=== PATIENT | male | born 1965 | race Caucasian/White ===

== ENCOUNTER 2016-05-21 02:04 | Emergency (ER) | payer MEDICARE ==
[2016-05-21] MEDS ORDERED: ZANT150T2 PO (02:16)
[2016-05-21] MEDS ORDERED: GABA300C5 PO (02:16)
[2016-05-21] MEDS ORDERED: CLON0.5T PO (02:16)
[2016-05-21] MEDS ORDERED: BUPR150CR PO (02:16)
[2016-05-21] MEDS ORDERED: AMLO5TAB2 PO (02:16)
[2016-05-21] MEDS ORDERED: ALBUAER3 INH (02:16)
[2016-05-21] MEDS ORDERED: BACL10TA PO (02:16)
[2016-05-21 03:15] LABS: BLOOD, URINE NEG (NEG); GLUCOSE,URINE NEG (NEG); KETONE, URINE NEG (NEG); NITRITE,URINE NEG (NEG); SQUAMOUS EPITHELIAL CELL URINE <1 /hpf (0-5); URINE COLOR LIGHT-YELLOW (YELLW/STRAW)
[2016-05-21 03:17] LABS: COMMENT (UR) CULT NOT INDICATED; CULTURE IF INDICATED CULT NOT INDICATED
[2016-05-21 03:18] LABS: AUTOMATED NEUTROPHIL # 5.6 TH/MM3 (1.8-7.7); BASOPHIL % 0.5 % (0.0-2.0); EOSINOPHIL # 0.1 TH/MM3 (0-0.4); EOSINOPHIL % 0.8 % (0.0-4.0); HEMATOCRIT 45.7 % (39.0-51.0); HEMO FLAGS DIFF FINAL; LYMPH % 12.9 % (9.0-44.0); LYMPHOCYTE # 0.9 TH/MM3 (1.0-4.8); MEAN CELL VOLUME 87.2 FL (80.0-100.0); MEAN CORPUSCULAR HEMOGLOBIN 30.2 PG (27.0-34.0); MEAN CORPUSCULAR HGB CONC 34.7 % (32.0-36.0); MONO % 7.2 % (0.0-8.0); NEUT % 78.6 % (16.0-70.0); PLATELET COUNT 188 TH/MM3 (150-450); RED BLOOD COUNT 5.24 MIL/MM3 (4.50-5.90); RED CELL DISTRIBUTION WIDTH 12.5 % (11.6-17.2); WHITE BLOOD COUNT 7.1 TH/MM3 (4.0-11.0)
[2016-05-21 03:22] LABS: AMPHETAMINE, URINE NEG (NEG); BARBITURATES, URINE NEG (NEG); COCAINE, URINE NEG (NEG)
[2016-05-21 03:25] VITALS: RESP 16
--- NOTE | 2016-05-21 03:26 | RADRPT ---
EXAM DATE/TIME: 05/21/2016 03:12 [facility] COMPARISON: No previous studies available for comparison. INDICATIONS : Cough. Weakness. MEDICAL HISTORY : None. SURGICAL HISTORY : None. ENCOUNTER: Initial ACUITY: 1 day PAIN SCORE: 5/10 LOCATION: Bilateral chest FINDINGS: A single portable frontal view of the chest shows a vague parenchymal density within the left lung ba se. Remaining lungs are clear. No effusions. Heart normal size. Bony structures are normal. CONCLUSION: Left lower lobe infiltrate. Fazal Flores Jr., MD on May 21, 2016 at 3:24 Board Certified Radiologist. This report was verified electronically.
--- NOTE | 2016-05-21 03:27 | RADRPT ---
EXAM DATE/TIME: 05/21/2016 02:57 [facility] COMPARISON: No previous studies available for comparison. INDICATIONS : Altered mental status; possible overdose. RADIATION DOSE: 56.35 CTDIvol (mGy) MEDICAL HISTORY : Hypertension. Cerebrovascular disease. SURGICAL HISTORY : None. ENCOUNTER: Initial ACUITY: 1 day PAIN SCALE: 0/10 LOCATION: cranial TECHNIQUE: Multiple contiguous axial images were obtained of the head. Using automated exposure control and adj ustment of the mA and/or kV according to patient size, radiation dose was kept as low as reasonably a chievable to obtain optimal diagnostic quality images. FINDINGS: CEREBRUM: The ventricles are normal for age. No evidence of midline shift, mass lesion, hemorrhage or acute in farction. No extra-axial fluid collections are seen. POSTERIOR FOSSA: The cerebellum and brainstem are intact. The 4th ventricle is midline. The cerebellopontine angle i s unremarkable. EXTRACRANIAL: The visualized portion of the orbits is intact. SKULL: Prior occipital craniectomy. No evidence of skull fracture. CONCLUSION: No acute disease. Fazal Flores Jr., MD on May 21, 2016 at 3:24 Board Certified Radiologist. This report was verified electronically.
[2016-05-21 03:29] LABS: APTT (PATIENT) 24.9 SEC (24.3-30.1); PROTHROMBIN TIME - PATIENT 11.5 SEC (9.8-11.6)
--- NOTE | 2016-05-21 03:41 | PD ---
HPI Chief Complaint: Medical Clearance Time Seen by Provider: 02:47 Travel History International Travel<30 days: No Contact w/Intl Traveler<30days: No Traveled to known affect area: No History of Present Illness HPI The patient is 51 year old male who presents to the [facility] emergency department with a history of earlier in the evening at his fdc developing a burning sensation in his eyes. He reports that there is a gap under the door and he was concerned that someone may be bringing in a cat. He reports that he has a history of allergies. He was also concerned that someone may be poisoning him. The patient reports that he would like to be checked for possible toxins. He reports that he felt nasal congestion with this, facial swelling, eye tearing and chest congestion. He reports that he took 20 mg of loratadine total. He reports that since doing this he is feeling improved. The patient reports that his blood pressure went up with this episode, therefore he took a leftover tablet of bisoprolol times one. The patient reports that this evening he has had a cough that is been dry in character. The patient denies any recent fevers, neck pain, chest pain, shortness of breath , abdominal pain, vomiting, diarrhea, urinary symptoms, or new neurologic symptoms. [facility] Past Medical History Narrative Medical The patient reports having chronic lower extremity weakness, balance problems and gait problems related to her prior intracranial hemorrhage. The patient has a history of allergic rhinitis, history of neuropathy, history of anxiety disorder, history of acid reflux, hypertension, asthma. Cerebrovascular Accident: Yes Hypertension: Yes Tetanus Vaccination: < 5 Years Influenza Vaccination: Yes Past Surgical History Narrative Surgical The patient's past surgical history is significant for intracranial surgery, and left tib-fib repair. Social History Alcohol Use: No Tobacco Use: No Substance Use: No Allergies-Medications (Allergen,Severity, Reaction): Coded Allergies: Amoxicillin (Verified Allergy, Severe, 05/21/16) Reported Meds & Prescriptions Reported Meds & Active Scripts Active Prednisone 20 Mg Tab 20 Mg PO BID 3 Days Azithromycin 250 Mg Tab 250 Mg PO DAILY 4 Days Reported Zantac (Ranitidine HCl) 150 Mg Tab 150 Mg PO DAILY Wellbutrin SR 12 HR (Bupropion HCl) 150 Mg Tab 150 Mg PO Q12HR Clonazepam 0.5 Mg Tab 0.5 Mg PO BID Gabapentin 300 Mg Cap 300 Mg PO HS Proair Hfa 8.5 GM Inh (Albuterol Sulfate) 90 Mcg/Act Aer 1 Puff INH Q4H PRN 108 mcg/actuation Baclofen 10 Mg Tab 10 Mg PO TID Amlodipine (Amlodipine Besylate) 5 Mg Tab 5 Mg PO DAILY Review of Systems Except as stated in HPI: all other systems reviewed are Neg General / Constitutional: No: Fever Eyes: Positive: Tearing, Other (burning of his eyes), No: Visual changes HENT: Positive: Rhinorrhea, Congestion, No: Headaches Cardiovascular: No: Chest Pain or Discomfort Respiratory: Positive: Cough, No: Shortness of Breath Gastrointestinal: No: Abdominal Pain Genitourinary: No: Dysuria Musculoskeletal: No: Pain Skin: No Rash Neurologic: No: Weakness Psychiatric: No: Depression Endocrine: No: Polydipsia Hematologic/Lymphatic: No: Easy Bruising Physical Exam Narrative General: The patient is a well-developed well-nourished male in no acute distress. Head and Neck exam: Head is normocephalic atraumatic. Eyes: EOMI, pupils are equal round and reactive to light. The patient has nystagmus on examination. He reports having a history of this. Nose: Midline septum with erythematous edematous nasal mucosa and a clear nasal discharge. Mouth: Dentition unremarkable. Moist mucus membranes. Posterior oropharynx is slightly erythematous. No tonsillar hypertrophy. Uvula midline. Airway patent. Neck: No palpable lymphadenopathy. No nuchal rigidity. No thyromegaly. Cardiovascular: Regular rate and rhythm without murmurs, gallops, or rubs. Lungs: Clear to auscultation bilaterally. No wheezes, rhonchi, or rales. Abdomen: Soft, without tenderness to palpation in all 4 quadrants of the abdomen. No guarding, rebound, or rigidity. Normal bowel sounds are audible. No tenderness on palpation of McBurney's point. Extremities: No clubbing, cyanosis, or edema. 2+ pulses in all 4 extremities. No calf tenderness on palpation. Back: No spinous process tenderness to palpation. No costovertebral angle tenderness to palpation. Neurologic Exam: Cranial nerves 2-12 were intact on exam. Strength is 5/5 in bilateral upper extremities, 4 over 5 in bilateral lower extremities. The patient denies having any new neurologic symptoms. No sensory deficits noted. Skin Exam: No rash noted. Intact skin that is warm and dry. Data Data Last Documented VS Vital Signs Date Time Temp Pulse Resp B/P Pulse Ox O2 Delivery O2 Flow Rate FiO2 05/21/16 03:25 16 Room Air 05/21/16 02:23 86 Orders Electrocardiogram (05/21/16 02:47) Complete Blood Count With Diff (05/21/16 02:47) Comprehensive Metabolic Panel (05/21/16 02:47) Creatine Kinase (Cpk) (05/21/16 02:47) Ckmb (Isoenzyme) Profile (05/21/16 02:47) Troponin I (05/21/16 02:47) B-Type Natriuretic Peptide (05/21/16 02:47) Prothrombin Time / Inr (Pt) (05/21/16 02:47) Act Partial Throm Time (Ptt) (05/21/16 02:47) Lipase (05/21/16 02:47) Urinalysis - C+S If Indicated (05/21/16 02:47) Magnesium (Mg) (05/21/16 02:47) Alcohol (Ethanol) (05/21/16 02:47) Drug Screen, Random Urine (05/21/16 02:47) Salicylates (Aspirin) (05/21/16 02:47) Tylenol (Acetaminophen) (05/21/16 02:47) Thyroid Stimulating Hormone (05/21/16 02:47) Chest, Single Ap (05/21/16 02:47) Ct Brain W/O Iv Contrast(Rout) (05/21/16 02:47) Iv Access Insert/Monitor (05/21/16 02:47) Ecg Monitoring (05/21/16 02:47) Oximetry (05/21/16 02:47) CKMB (05/21/16 03:00) CKMB% (05/21/16 03:00) Sodium Chlor 0.9% 1000 Ml Inj (Ns 1000 M (05/21/16 04:30) Azithromycin Inj (Zithromax Inj) (05/21/16 04:30) Prednisone (Deltasone) (05/21/16 05:15) Labs Laboratory Tests Test 05/21/16 03:00 White Blood Count 7.1 TH/MM3 Red Blood Count 5.24 MIL/MM3 Hemoglobin 15.9 GM/DL Hematocrit 45.7 % Mean Corpuscular Volume 87.2 FL Mean Corpuscular Hemoglobin 30.2 PG Mean Corpuscular Hemoglobin 34.7 % Concent Red Cell Distribution Width 12.5 % Platelet Count 188 TH/MM3 Mean Platelet Volume 8.7 FL Neutrophils (%) (Auto) 78.6 % Lymphocytes (%) (Auto) 12.9 % Monocytes (%) (Auto) 7.2 % Eosinophils (%) (Auto) 0.8 % Basophils (%) (Auto) 0.5 % Neutrophils # (Auto) 5.6 TH/MM3 Lymphocytes # (Auto) 0.9 TH/MM3 Monocytes # (Auto) 0.5 TH/MM3 Eosinophils # (Auto) 0.1 TH/MM3 Basophils # (Auto) 0.0 TH/MM3 CBC Comment DIFF FINAL Differential Comment Prothrombin Time 11.5 SEC Prothromb Time International 1.0 RATIO Ratio Activated Partial 24.9 SEC Thromboplast Time Urine Color LIGHT-YELLOW Urine Turbidity CLEAR Urine pH 7.0 Urine Specific [place] 1.007 Urine Protein NEG mg/dL Urine Glucose (UA) NEG mg/dL Urine Ketones NEG mg/dL Urine Occult Blood NEG Urine Nitrite NEG Urine Bilirubin NEG Urine Urobilinogen LESS THAN 2.0 MG/DL Urine Leukocyte Esterase NEG Urine RBC 1 /hpf Urine WBC LESS THAN 1 /hpf Urine Squamous Epithelial <1 /hpf Cells Microscopic Urinalysis Comment CULT NOT INDICATED Sodium Level 138 MEQ/L Potassium Level 4.1 MEQ/L Chloride Level 103 MEQ/L Carbon Dioxide Level 24.9 MEQ/L Anion Gap 10 MEQ/L Blood Urea Nitrogen 14 MG/DL Creatinine 1.21 MG/DL Estimat Glomerular Filtration 63 ML/MIN Rate Random Glucose 112 MG/DL Calcium Level 9.0 MG/DL Magnesium Level 2.1 MG/DL Total Bilirubin 0.5 MG/DL Aspartate Amino Transf 42 U/L (AST/SGOT) Alanine Aminotransferase 57 U/L (ALT/SGPT) Alkaline Phosphatase 79 U/L Total Creatine Kinase 742 U/L Creatine Kinase MB 14.1 NG/ML Creatine Kinase MB % 1.9 % Troponin I LESS THAN 0.02 NG/ML B-Type Natriuretic Peptide 8 PG/ML Total Protein 7.3 GM/DL Albumin 4.0 GM/DL Lipase 110 U/L Thyroid Stimulating Hormone 2.160 uIU/ML 3rd Gen Salicylates Level LESS THAN 1.7 MG/DL Urine Opiates Screen NEG Acetaminophen Level LESS THAN 2.0 MCG/ML Urine Barbiturates Screen NEG Urine Amphetamines Screen NEG Urine Benzodiazepines Screen NEG Urine Cocaine Screen NEG Urine Cannabinoids Screen NEG Ethyl Alcohol Level LESS THAN 3 MG/DL MDM Medical Decision Making Medical Screen Exam Complete: Yes Emergency Medical Condition: Yes Medical Record Reviewed: Yes Differential Diagnosis Allergic reaction, anxiety disorder, upper respiratory infection, versus pneumonia, versus intoxication, versus withdrawal syndrome, versus intracranial abnormality Narrative Course During the course of the patients emergency department visit, the patients history, examination, and differential diagnosis were reviewed with the patient. The patient had IV access obtained and blood work sent for analysis. The patient was placed on a compliance monitor with oximetry and blood pressure monitoring. An EKG was done on arrival. The patient's EKG shows a sinus rhythm , the patient's EKG shows a sinus rhythm, left axis deviation, T waves inverted in V1 and lead 3, no other acute ST segment changes. The patient was provided prednisone 40 mg by mouth 1. Normal saline 1 L IV fluid bolus. The patients laboratory studies were reviewed and remarkable for a white count of 7.1, hemoglobin 15.9, platelets 188 with 78.6 neutrophils, CMP is remarkable for glucose of 112, AST 42, CPK 742 with an MB percent that is negative, troponin I less than 0.02, BNP is 8, TSH 2.16, lipase 110, PT PTT unremarkable. Urinalysis within normal limits. Urine drug screen is negative, salicylate less than 1.7, acetaminophen less than 2, alcohol less than 3. Radiology studies were reviewed and remarkable for a CT scan of the brain that was read as negative by the reading radiologist. Chest x-ray that showed a left lower lobe infiltrate. The patient was given 8 azithromycin 500 mg IV times one. The patient's results were discussed with him. The patient's symptoms are most consistent with an acute allergic reaction possibly to something inhaled and a left lower lobe infiltrate suspicious for pneumonia. The patient will be discharged home with a prescription for azithromycin and prednisone. The patient was instructed to continue on loratadine once daily. The patient is resting comfortably and feels better, is alert and in no distress. The patients results and examination findings were discussed with the patient. The repeat examination is unremarkable and benign. The history, exam, diagnostic testing, and current condition do not suggest any significant pathology to warrant further testing, continued ED treatment, admission, or surgical evaluation at this point. The vital signs have been stable. The patient does not have uncontrollable pain, intractable vomiting, or other significant symptoms. The patient's condition is stable and appropriate for discharge. The patient will pursue further outpatient evaluation with a primary care physician or other designated or consulting physician as indicated in the discharge instructions. The patient expressed understanding and was agreeable with this plan. Diagnosis Primary Impression: Allergic reaction Qualified Code: T78.40XA - Allergic reaction, initial encounter Additional Impression: Pneumonia Qualified Code: J18.1 - Pneumonia of left lower lobe due to infectious organism Referrals: Primary Care Physician 2 days Patient Instructions: Allergic Rhinitis (ED), Bacterial Pneumonia (ED), General Instructions Additional Instructions: Continue loratadine once daily. Med/Other Pt SpecificInfo: Prescription(s) given Scripts Prednisone 20 Mg Tab20 Mg PO BID 3 Days Ref 0 Prov:Pascale Banks MD 05/21/16 Azithromycin 250 Mg Fel124 Mg PO DAILY 4 Days Ref 0 Prov:Pascale Banks MD 05/21/16 Disposition: 01 DISCHARGE HOME Condition: Stable Pascale Banks MD May 21, 2016 03:41
[2016-05-21 03:44] LABS: ACETAMINOPHEN LESS THAN 2.0 MCG/ML (10.0-30.0); ALKALINE PHOSPHATASE 79 U/L (45-117); ALT (GPT) 57 U/L (12-78); ANION GAP 10 MEQ/L (5-15); AST (GOT) 42 U/L (15-37); BICARBONATE 24.9 MEQ/L (21.0-32.0); BLOOD UREA NITROGEN 14 MG/DL (7-18); CHLORIDE 103 MEQ/L (98-107); CREATINE KINASE 742 U/L (39-308); GLOMERULAR FILTRATION RATE 63 ML/MIN (>89); MAGNESIUM 2.1 MG/DL (1.5-2.5); POTASSIUM 4.1 MEQ/L (3.5-5.1); SODIUM (NA) 138 MEQ/L (136-145); TOTAL BILIRUBIN ADULT 0.5 MG/DL (0.2-1.0)
[2016-05-21 03:57] LABS: CKMB 14.1 NG/ML (0.5-3.6)
[2016-05-21] MEDS ORDERED: AZITHROMYCIN INJ 500 MG in SODIUM CHLOR 0.9% 250 ML INJ 250 ML IV ONE (04:30)
[2016-05-21] MEDS ORDERED: SODIUM CHLOR 0.9% 1000 ML INJ 1,000 ML IV ONE (04:30)
[2016-05-21] MEDS ORDERED: AZIT250T3 PO (05:02)
[2016-05-21] MEDS ORDERED: PRED20 PO (05:02)
[2016-05-21] MEDS ORDERED: predniSONE 20 MG TAB PO ONE (05:15)
--- NOTE | 2016-05-21 17:47 | EKG ---
Date Performed: 05/21/2016 Time Performed: 03:16:51 PTAGE: 51 years EKG: Sinus rhythm MARKED LEFT AXIS DEVIATION PATTERN CONSISTENT WITH PULMONARY DISEASE ABNORMAL ECG INTERPRETATION BAS ED ON A DEFAULT AGE OF 38 YEARS NO PREVIOUS TRACING DOCTOR: Lanie Escalona Interpretating Date/Time 05/21/2016 17:45:09
== END 2016-05-21 06:28 | disposition home or self-care (01) ==
LOC: NEPE 02:04
DX: T78.40XA Allergy, unspecified, initial encounter (principal); J18.9 Pneumonia, unspecified organism; R94.31 Abnormal electrocardiogram [ECG] [EKG]; R05 Cough; I10 Essential (primary) hypertension; J45.909 Unspecified asthma, uncomplicated; X58.XXXA Exposure to other specified factors, initial encounter; Y92.199 Unspecified place in other specified residential institution as the place of occurrence of the external cause
CPT/HCPCS: 70450; 71010; 80053; 81001; 82550; 82552; 83690; 83735; 83880; 84443; 84484; 85025; 85610; 85730; 93005; 96374; 99284; G0481; J0456; J7050; 80307; 80320; 80329; G0480